=== PATIENT | male | born 2005 | race Two or more races ===

== ENCOUNTER 2025-04-04 20:16 | Emergency (ER) | payer MEDICAID, SELFPAY ==
[2025-04-04 20:19] VITALS: BMI 28.7
--- NOTE | 2025-04-04 20:51 | PC.NURSE ---
PT AND PT'S MOTHER INFORMED ME THAT THEY ARE GOING HOME AND WILL SEE PMD IN AM
== END 2025-04-04 21:12 | disposition left against medical advice (07) ==
PROVIDERS: Emergency Provider Emergency Medicine
DX: Z53.21 Procedure and treatment not carried out due to patient leaving prior to being seen by health care provider (principal)
CPT/HCPCS: 99283